=== PATIENT | female | born 1990 | race Caucasian/White ===

== ENCOUNTER 2018-11-17 17:20 | Emergency (ER) | payer BC ==
[2018-11-17 17:26] VITALS: BP 144/86
--- NOTE | 2018-11-17 17:50 | EDPHY ---
H & P Time Seen by Provider: 11/17/18 17:29 HPI/ROS: CHIEF COMPLAINT: sore throat HISTORY OF PRESENT ILLNESS: 28-year-old female presents to the emergency department with sore throat and right-sided neck pain. Patient states that her symptoms started back in mid August, several weeks ago. She states 3 days ago she went to see a dentist because she thought this was related to her tooth. She was advised to have a root canal and they started her on amoxicillin 500 mg three times daily. She has been taking this since . She has not seen an ENT. She denies dysphagia. She thought that she noted some right-sided neck swelling. She is concerned about an abscess. Denies other neck pain. No fevers or chills. She is able to eat and drink normally. Denies any reported trauma. Still complains of persisting sore throat since August. REVIEW OF SYSTEMS: Constitutional: No fever, no chills. Eyes: No double or blurry vision. ENT: sore throat. Respiratory: No cough, no shortness of breath. Cardiac: No chest pain. Gastrointestinal: No abdominal pain, vomiting or diarrhea. Genitourinary: No dysuria. Musculoskeletal: No neck or back pain. Skin: No rashes. Neurological: No headache. Past Medical/Surgical History: sciatica Social History: Lives in [place] Smoking Status: Current every day smoker Physical Exam: General Appearance: Alert, no distress. Vital signs are stable. Afebrile. No muffled voice or trismus. Eyes: Pupils equal and round. Extraocular motions are all intact. ENT: Mouth: Mucous membranes moist. Poor dentition is noted especially in her right lower 2nd molar. There is no gum swelling or anything to suggest an abscess. Patient has axillary lymphadenopathy palpated both on the left and the right side. Her neck supple. There is no obvious facial swelling. She has some mild pain with palpation along her right sternocleidomastoid muscle. No sublingual swelling. Respiratory: No wheezing, rhonchi, or rales, lungs are clear to auscultation. Cardiovascular: Regular rate and rhythm. Gastrointestinal: Abdomen is soft and nontender, no masses, no rebound or guarding, bowel sounds normal. Neurological: Alert and oriented x 3, cranial nerves II through XII grossly intact Skin: Warm and dry, no rashes. Musculoskeletal: Nontender to palpate along the cervical, thoracic or lumbar spine. Neck is supple. Extremities: Full range of motion and no peripheral edema. Psychiatric: Patient is oriented X 3, there is no agitation. Constitutional: Initial Vital Signs Temperature (C) 37.1 C 11/17/18 17:24 Heart Rate 84 11/17/18 17:24 Respiratory Rate 16 11/17/18 17:24 Blood Pressure 144/86 H 11/17/18 17:24 O2 Sat (%) 100 11/17/18 17:24 O2 Delivery Mode Room Air Allergies/Adverse Reactions: No Known Allergies Allergy (Unverified 11/17/18 17:24) Home Medications: Medication Instructions Recorded Amoxicillin 11/17/18 Cyclobenzaprine 11/17/18 Medical Decision Making ED Course/Re-evaluation: 28-year-old female presents emergency department with persisting sore throat. She was concerned about an abscess. She is currently taking amoxicillin 500 mg three times daily. There is no evidence of abscess on examination. The patient has an otherwise normal exam. Since she has been symptomatic since August, I recommended that she follow up with an ENT. I do not think imaging is indicated in the emergency department. This was discussed with the patient and she verbalized understanding and agreed. Patient was reassured. I did encourage her to follow up with ENT as discussed. She will continue antibiotics as prescribed and return if she develops any dysphagia, facial swelling, fever, or any other concerns. Differential Diagnosis: Including but not limited to dental abscess, dental caries, strep pharyngitis, mononucleosis, peritonsillar abscess, torticollis Departure - Departure Disposition: Home, Routine, Self-Care Clinical Impression: Sore throat Condition: Good Instructions: Pharyngitis (ED) Additional Instructions: Continue Amoxicillin as directed by your dentist. Warm salt water gargles Return if you develop a fever, facial swelling or if you feel worse in any way. Follow up with an ENT this week since you have had ongoing symptoms since August. 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
== END 2018-11-17 18:02 | disposition home or self-care (01) ==
DX: J02.9 Acute pharyngitis, unspecified (principal); F17.200 Nicotine dependence, unspecified, uncomplicated

== ENCOUNTER 2018-11-18 19:40 | Emergency (ER) | payer BC ==
--- NOTE | 2018-11-18 20:13 | EDPHY ---
H & P Stated Complaint: right side neck swelling and pain - Personal History LMP (Females 10-55): Now Current Tetanus/Diphtheria Vaccine: Yes Current Tetanus Diphtheria and Acellular Pertussis (TDAP): Yes - Medical/Surgical History Hx Asthma: No Hx Chronic Respiratory Disease: No Hx Diabetes: No Hx Cardiac Disease: No Hx Renal Disease: No Hx Cirrhosis: No Hx Alcoholism: No Hx HIV/AIDS: No Hx Splenectomy or Spleen Trauma: No Other PMH: sciatica, - Social History Smoking Status: Current every day smoker Time Seen by Provider: 11/18/18 20:13 HPI/ROS: CHIEF COMPLAINT: Right neck pain HISTORY OF PRESENT ILLNESS: 28-year-old immunocompetent female complaining of sore throat and right-sided neck pain for this since August 2018. Seen the ER yesterday. 4 days ago she saw her dentist thinking that may be related to odontogenic etiology which started on amoxicillin. Patient notes no odontalgia. Today she noticed increasing pain in the right submandibular region as well as right TMJ region. She also noted transient paresthesia in same location, now resolved. Patient is concerned about possible lymphoma. She denies: Fetid odor, foul taste in mouth, trismus, drooling, change in voice , otorrhea, hearing loss, tinnitus, adenopathy beyond submandibular adenopathy. PRIMARY CARE PROVIDER: REVIEW OF SYSTEMS: 10 systems reviewed and negative with the exception of the elements mentioned in the history of present illness PAST MEDICAL & SURGICAL HISTORY: No pertinent medical or surgical history SOCIAL HISTORY:Single PHYSICAL EXAM (Prior to examination, patient consented to physical exam, hands were washed and my usual and customary physical exam procedures followed) 1) GENERAL: Well-developed, well-nourished, alert and oriented. Appears to be in no acute distress. Appears anxious 2) HEAD: Normocephalic, atraumatic 3) HEENT: Pupils equal, round, reactive to light bilaterally. Sclera anicteric. Nasopharynx: Clear. No lesions. Oropharynx: No trismus no drooling, no hot potato voice. No tonsillar enlargement or exudate. Poor dentition. No tenderness to palpation of the teeth. No evidence of apical abscess. Floor of mouth soft no evidence of Puneet's angina. No submental, sublingual, submandibular induration or tenderness. Bilateral submandibular adenopathy is present which is tender. No facial or neck crepitus. Ear examination bilaterally is unremarkable with no evidence of otitis media otitis externa bilaterally. Bilateral mastoid nontender non boggy. No otorrhea. Full range of motion the neck with no meningeal signs. 4) NECK: Full range of motion, no meningeal signs. Positive submandibular adenopathy bilaterally which is tender. 5) LUNGS: Clear auscultation bilaterally, no wheezes, no rhonchi, no retractions. 6) HEART: Regular rate and rhythm, no murmur, no heave, no gallop. 7) ABDOMEN: No guarding, no rebound, no focal tenderness, negative McBurney's, negative Blackburn's, negative Rovsing's, negative peritoneal sign, no splenomegaly. 8) MUSCULOSKELETAL: Moving all extremities, no focal areas of tenderness, no obvious trauma. No peripheral edema or discoloration. 9) BACK: No CVA tenderness, no midline vertebral tenderness, no fluctuance, no step-off, no obvious trauma, no visual or palpable abnormality. 10) SKIN: No rash, no petechiae. 11) Psychiatric: Patient is oriented X 3, there is no agitation. DIFFERENTIAL DIAGNOSIS: In no particular order, my differential diagnosis includes, but is not limited to, strep pharyngitis, viral pharyngitis, peritonsillar abscess, retropharyngeal abscess or phlegmon, mononucleosis, meningitis, Lemierre syndrome. (Chloe Smiley) Constitutional: Initial Vital Signs Temperature (C) 37.0 C 11/18/18 19:43 Heart Rate 90 11/18/18 19:43 Respiratory Rate 16 11/18/18 19:43 Blood Pressure 127/81 H 11/18/18 19:43 O2 Sat (%) 95 11/18/18 19:43 O2 Delivery Mode Room Air Allergies/Adverse Reactions: No Known Allergies Allergy (Verified 11/18/18 19:45) Home Medications: Medication Instructions Recorded Amoxicillin 11/17/18 Cyclobenzaprine 11/17/18 Medical Decision Making - Diagnostics Imaging Results: Images reviewed myself (Chloe Smiley) ED Course/Re-evaluation: I reviewed the patient's medical record from her emergency department visit yesterday. 10:08 p.m.: I reviewed the patient her imaging studies showing a stone at the right submandibular salivary gland duct. Patient has received IV fluids and IV Decadron. I think the patient can be discharged. Today is Sunday. She has an upcoming appointment with Dr. Stu Chaidez this . Recommend she keep this appointment. Continue her medications. Recommended sialagogues. She feels comfortable being discharged. Usual and customary ENT precautions and instructions provided. Care of patient under supervision of secondary supervising physician Dr Cohen . (Baljit,Chloe Sandra) This patient was evaluated and managed by the physician wellness assistant. I have reviewed the documentation and agree with the plan of care. I am the secondary supervising physician. (Cassidy Cohen) - Data Points Laboratory Results: Laboratory Results 11/18/18 20:30 11/18/18 20:30 Medications Given: Discontinued Medications Dexamethasone (Decadron Injection) 10 mg IVP EDNOW ONE Stop: 11/18/18 20:26 Last Admin: 11/18/18 20:41 Dose: 10 mg Sodium Chloride (Ns) 1,000 mls @ 0 mls/hr IV ONCE ONE PRN Reason: Wide Open Stop: 11/18/18 20:25 Last Admin: 11/18/18 20:41 Dose: 1,000 mls Departure - Departure Disposition: Home, Routine, Self-Care Clinical Impression: Salivary gland calculi Condition: Good Instructions: Sialoadenitis (ED) Additional Instructions: Eat sour candy. Take your medication as directed. Keep your appointment with ear nose and throat doctor. Return to the ER if you develop facial swelling, fever, chills , inability to swallow, or any other symptoms that concern you. Referrals: Stu Chaidez MD [Medical Doctor] - As per Instructions
[2018-11-18] MEDS ORDERED: NS 1,000 ML IV ONE (20:24)
[2018-11-18] MEDS ORDERED: DEXAMETHASONE 10 MG/ML VIAL IVP ONE (20:25)
[2018-11-18 20:38] LABS: PLATELET COUNT 290 10^3/uL (150-400)
[2018-11-18] MEDS ORDERED: IOHEXOL 350mgI/ML (OMNIPAQUE) 150 ML BTL IV ONE (21:17)
[2018-11-18 22:44] VITALS: BP 97/63
== END 2018-11-18 22:43 | disposition home or self-care (01) ==
DX: K11.5 Sialolithiasis (principal); D84.9 Immunodeficiency, unspecified
CPT/HCPCS: 96374; J1100; Q9967